=== PATIENT | male | born 1975 | race Two or more races ===

== ENCOUNTER 2021-11-26 06:47 | Emergency (ER) | payer OTHER ==
[~2021-11-26] VITALS: Ht 180.3 cm; Wt 113.4 kg
[2021-11-26] MEDS ORDERED: GLUMETZA1000 MG PO (07:02)
[2021-11-26] MEDS ORDERED: LANTUS SOL100 UNIT/1 (07:02)
[2021-11-26] MEDS ORDERED: ULTRAM50 MG (07:03)
[2021-11-26] MEDS ORDERED: GRALISE600 MG PO (07:03)
[2021-11-26] MEDS ORDERED: MUPIROCIN1 G1 TOP (09:35)
[2021-11-26] MEDS ORDERED: KETO10TA2 PO (09:35)
[2021-11-26] MEDS ORDERED: HIBICLENS118 ML TOP (09:35)
[2021-11-26] MEDS ORDERED: AMOX-CLAV 875-1 EACH PO (09:35)
== END 2021-11-26 09:57 | disposition home or self-care (01) ==
LOC: ER 06:47
DX: N61.0 Mastitis without abscess (principal)